=== PATIENT | female | born 1980 | race African-American/Black ===

== ENCOUNTER → 2019-03-23 | Day surgery (SDC) | payer BC ==
[~2019-03-23] MED LIST: DEXL60CA2 PO; HYDR-3164 PO; IV RINGERS,LACTATED 1000ML 1,000 ML IV ONE; LIALDA1.2 GM PO; LOSA100T14 PO; METF500T16 PO; OLME20TA21 PO; PROPOFOL 20 ML IV ONE
[2019-03-23 13:49] VITALS: BP 124/68
== END ==
LOC: SURG 12:22
PROVIDERS: ATTEND Internal Medicine Gastroenterology
DX: K22.2 Esophageal obstruction (principal); K21.9 Gastro-esophageal reflux disease without esophagitis; K29.70 Gastritis, unspecified, without bleeding; E11.9 Type 2 diabetes mellitus without complications; E78.00 Pure hypercholesterolemia, unspecified; K51.90 Ulcerative colitis, unspecified, without complications; F15.90 Other stimulant use, unspecified, uncomplicated; D64.9 Anemia, unspecified; Z80.0 Family history of malignant neoplasm of digestive organs; Z72.89 Other problems related to lifestyle; Z98.890 Other specified postprocedural states; Z90.49 Acquired absence of other specified parts of digestive tract; Z79.84 Long term (current) use of oral hypoglycemic drugs
CPT/HCPCS: 43235; 43450; 81025; J2704